=== PATIENT | male | born 1965 ===

== ENCOUNTER 2019-02-14 11:54 | Outpatient (CLI) | payer OTHER | END 2019-02-14 11:55 | disposition home or self-care (01) | LOC: LAB 11:54 | DX: R76.8 Other specified abnormal immunological findings in serum (principal); I10 Essential (primary) hypertension; R80.9 Proteinuria, unspecified ==

== ENCOUNTER 2019-04-22 15:11 | Inpatient (IN) | payer MEDICAID, OTHER ==
[2019-04-22 15:39] VITALS: BMI 26.6
--- NOTE | 2019-04-22 16:17 | ED PDOC ---
Arrival/HPI - General Chief Complaint: Abdominal Pain Time Seen by Provider: 04/22/19 15:17 - History of Present Illness Narrative History of Present Illness (Text): 53 y/o M c PMHx HTN on multiple HTN medications p/w epigastric pain x 2 days. States woke up with pain yesterday morning. Pain is constant, like burning, associated with nausea. Associated with bilateral shoulder pain. Denies fever, chills, vomiting, dyspnea, dysuria, diarrhea, leg swelling. PMD Ifrah Past Medical History - Provider Review Primary Care Provider: Valorie Rg - Infectious Disease Hx of Infectious Diseases: None - Cardiac Hx Cardiac Disorders: Yes Hx Hypertension: Yes - Pulmonary Hx Respiratory Disorders: No - Neurological Hx Neurological Disorder: No - HEENT Hx HEENT Disorder: No - Renal Hx Renal Disorder: No - Endocrine/Metabolic Hx Endocrine Disorders: No - Hematological/Oncological Hx Blood Disorders: No - Integumentary Hx Dermatological Disorder: No - Musculoskeletal/Rheumatological Hx Falls: No - Gastrointestinal Hx Gastrointestinal Disorders: No - Genitourinary/Gynecological Hx Reproductive Disorders: No - Psychiatric Hx Psychophysiologic Disorder: No Hx Substance Use: No - Anesthesia Hx Anesthesia: No Family/Social History Family/Social History: No Known Family HX Smoking Status: Never Smoked Hx Alcohol Use: Yes (socially) Hx Substance Use: No Allergies/Home Meds Allergies/Adverse Reactions: Allergies No Known Allergies Allergy (Verified 04/22/19 18:39) Home Medications: Home Meds Medication Instructions Recorded Confirmed Potassium Chloride [Klor-Con 10] 10 meq PO DAILY 04/22/19 04/22/19 cloNIDine [Catapres] 0.2 mg PO TID 04/22/19 04/22/19 hydrALAZINE [Apresoline] 50 mg PO BID 04/22/19 04/22/19 Review of Systems - Physician Review All systems were reviewed & negative as marked: Yes - Review of Systems Constitutional: absent: Fevers Gastrointestinal: absent: Vomiting Physical Exam - Physical Exam Narrative Physical Exam (Text): Gen nad head nc/at eyes perrl ent mmm neck supple chest no tenderness cv tachycardic lungs cta b/l abd soft epigastric tenderness without guarding back no upper, midline, or cva tenderness skin no rash extremities no edema neuro alert, no focal deficit Vital Signs Temp Pulse Resp BP Pulse Ox 04/22/19 15:52 99.6 F 104 H 18 137/88 98 Medical Decision Making ED Course and Treatment: ekg sinus rhythm 110 bpm, t wave inversions laterally, new since previous differential includes but not limited to acs, gastritis, pancreatitis. Plan: Aspirin, cxr, enzymes. If all negative, CT abdomen/pelvis. 04/22/19 17:42 CXR no acute disease as read by radiologist. CT: IMPRESSION: Trace stranding around the pancreatic head compatible with acute pancreatitis. No hemorrhage, necrosis or pseudocyst. Patient still with pain, requires NPO status and IVF hydration. Dr. Ball accepts patient to hospitalist service. - RAD Interpretation Radiology Orders: 04/22/19 16:12 CHEST PORTABLE [RAD] Stat Disposition/Present on Arrival - Present on Arrival Any Indicators Present on Arrival: No History of DVT/PE: No History of Uncontrolled Diabetes: No Urinary Catheter: No History of Decub. Ulcer: No History Surgical Site Infection Following: None - Disposition Have Diagnosis and Disposition been Completed?: Yes Diagnosis: Acute pancreatitis Disposition: HOSPITALIZED Disposition Time: 17:32 Patient Plan: Admission Condition: GUARDED
[2019-04-22 16:22] LABS: BASO # 0.01 K/mm3 (0.0-2.0); BASO % 0.1 % (0.0-3.0); EOS % 0.1 % (1.5-5.0); HEMOGLOBIN 15.7 g/dL (14.0-18.0); LYMPH % 11.9 % (22.0-35.0); MEAN CELL VOLUME 81.1 fl (80.0-105.0); MEAN CORPUSCULAR HEMOGLOBIN 28.3 pg (25.0-35.0); MEAN CORPUSCULAR HGB CONC 34.9 g/dl (31.0-37.0); MONO # 0.6 (0.1-0.6); MONO % 7.3 % (1.0-6.0); PLATELET COUNT 79 10^3/uL (120.0-450.0); RBC 5.55 10^6/uL (3.5-6.1); RED CELL DISTRIBUTION WIDTH 12.7 % (11.5-14.5); WHITE BLOOD COUNT 8.4 10^3/uL (4.5-11.0)
[2019-04-22 16:31] LABS: INR 1.13; PARTIAL THROMBOPLASTIN TIME 32.3 Seconds (26.9-38.3); PROTHROMBIN TIME 12.5 SECONDS (9.4-12.5)
[2019-04-22 16:33] LABS: ALB/GLOB RATIO 1.2 (1.1-1.8); ALBUMIN 4.4 g/dL (3.0-4.8); ALT/SGPT 23 U/L (7-56); AST/SGOT 27 U/L (17-59); BLOOD UREA NITROGEN 18 mg/dL (7-21); CALCIUM 8.8 mg/dL (8.4-10.5); GFR NON-AFRICAN AMERICAN > 60; LIPASE 360 U/L (23-300)
[2019-04-22 16:43] LABS: TROPONIN I < 0.01 ng/mL
[2019-04-22] MEDS ORDERED: Iohexol 350 MG/100 ML VIAL ONE (17:02)
--- NOTE | 2019-04-22 17:35 | RAD ---
Date of service: 04/22/2019 HISTORY: epigastric pain, bilateral shoulder pain COMPARISON: Chest radiograph dated 11/23/2018. TECHNIQUE: 1 view obtained. FINDINGS: LUNGS: No active pulmonary disease. PLEURA: No significant pleural effusion identified, no pneumothorax apparent. CARDIOVASCULAR: No aortic atherosclerotic calcification present. Normal cardiac size. No pulmonary vascular congestion. OSSEOUS STRUCTURES: No significant abnormalities. VISUALIZED UPPER ABDOMEN: Normal. OTHER FINDINGS: None. IMPRESSION: No active disease.
--- NOTE | 2019-04-22 17:47 | CT ---
Date of service: 04/22/2019 PROCEDURE: CT Abdomen and Pelvis with contrast HISTORY: epigastric pain, nausea, tenderness COMPARISON: None. TECHNIQUE: Contrast dose: 100 mL Omnipaque 350 Radiation dose: Total exam DLP = 487.83 mGy-cm. This CT exam was performed using one or more of the following dose reduction techniques: Automated exposure control, adjustment of the mA and/or kV according to patient size, and/or use of iterative reconstruction technique. FINDINGS: LOWER THORAX: Cardiomegaly. No focal consolidation or pleural effusion. LIVER: 2.7 x 2.1 cm right hepatic lobe cyst. No gross lesion or ductal dilatation. GALLBLADDER AND BILE DUCTS: Unremarkable. PANCREAS: Trace stranding adjacent to the pancreatic head. No gross lesion or ductal dilatation. SPLEEN: Unremarkable. ADRENALS: Unremarkable. No mass. KIDNEYS AND URETERS: Unremarkable. No hydronephrosis. No solid mass. VASCULATURE: Unremarkable. No aortic aneurysm. No aortic atherosclerotic calcification or mural plaque present. BOWEL: Unremarkable. No obstruction. No gross mural thickening. APPENDIX: Normal appendix. PERITONEUM: Unremarkable. No free fluid. No free air. LYMPH NODES: Unremarkable. No enlarged lymph nodes. BLADDER: Unremarkable. REPRODUCTIVE: Prostatomegaly. BONES: No acute fracture. OTHER FINDINGS: None. IMPRESSION: Trace stranding around the pancreatic head compatible with acute pancreatitis. No hemorrhage, necrosis or pseudocyst.
[2019-04-22] MEDS ORDERED: Sodium Chloride 0.9% 1,000 ML IV STA (18:12)
--- NOTE | 2019-04-22 18:34 | CP.PCM.HP ---
<Eyad Jernigan - Last Filed: 04/23/19 07:08> History of Present Illness - History of Present Illness History of Present Illness: Eyad Jernigan DO PGy1 - Internal Medicine Security Control Room Officer - Hospitalist H&P CC: Abd Pain Patient is a 53M w/ a PMH of HTN, HLD, CVA w/ residual L sided deficit presenting to [facility] ED on 04/22 w/ CC of abd pain x2 days. Patient reported that pain began on Monday morning as a mild sharp sensation; He said over the weekend it progressively worsened and subsequently came to the ED. Patient reports associated nausea and loss of appetite w/o any episodes of emesis. Patient denies abdominal trauma, recent illicit drug use, or EtOH use. Denies any recent changes in diet. Patient reported pain is worsened w/ diet. Does not have any complaints of fevers, chills, chest pain, sob, diarrhea, constipation, urinary symptoms. Remainder 12 system ROS is otherwise negative. PMD: Ifrah Nephro: Lilliani PMH: As above PSH: Denies ALL: NKDA Pharmacy: [facility] Home Rx: Aspirin [Ecotrin] 81 mg PO DAILY Chlorthalidone [Hygroton] 25 mg PO DAILY Lisinopril [Zestril] 40 mg PO DAILY amLODIPine [Norvasc] 10 mg PO DAILY Potassium Chloride [Klor-Con 10] 10 meq PO DAILY cloNIDine [Catapres] 0.2 mg PO TID hydrALAZINE [Apresoline] 50 mg PO BID Present on Admission - Present on Admission Any Indicators Present on Admission: No Review of Systems - Review of Systems All systems: reviewed and no additional remarkable complaints except Review of Systems: as per HPI Past Patient History - Infectious Disease Hx of Infectious Diseases: None - Past Medical History & Family History Past Medical History?: No - Past Social History Smoking Status: Never Smoked - CARDIAC Hx Cardiac Disorders: Yes Hx Hypertension: Yes - PULMONARY Hx Respiratory Disorders: No - NEUROLOGICAL Hx Neurological Disorder: No - HEENT Hx HEENT Problems: No - RENAL Hx Chronic Kidney Disease: No - ENDOCRINE/METABOLIC Hx Endocrine Disorders: No - HEMATOLOGICAL/ONCOLOGICAL Hx Blood Disorders: No - INTEGUMENTARY Hx Dermatological Problems: No - MUSCULOSKELETAL/RHEUMATOLOGICAL Hx Falls: No - GASTROINTESTINAL Hx Gastrointestinal Disorders: No - GENITOURINARY/GYNECOLOGICAL Hx Reproductive Disorders: No - PSYCHIATRIC Hx Psychophysiologic Disorder: No Hx Substance Use: No - SURGICAL HISTORY Hx Surgeries: No - ANESTHESIA Hx Anesthesia: No Meds Allergies/Adverse Reactions: Allergies Allergy/AdvReac Type Severity Reaction Status Date / Time No Known Allergies Allergy Verified 04/22/19 18:39 Physical Exam - Constitutional Appears: Well, Non-toxic, No Acute Distress - Head Exam Head Exam: ATRAUMATIC, NORMOCEPHALIC - Eye Exam Eye Exam: EOMI, Normal appearance, PERRL - Respiratory Exam Respiratory Exam: Clear to Auscultation Bilateral, NORMAL BREATHING PATTERN - Cardiovascular Exam Cardiovascular Exam: RRR. absent: Systolic Murmur - GI/Abdominal Exam GI & Abdominal Exam: Soft, Tenderness (mild epigastric tendneress ) Additional comments: Bravo's negative - Neurological Exam Neurological exam: Alert, CN II-XII Intact, Oriented x3 - Psychiatric Exam Psychiatric exam: Normal Affect, Normal Mood - Skin Skin Exam: Dry, Normal Color, Warm Results - Vital Signs Recent Vital Signs: Last Vital Signs Temp 98.7 F 04/22/19 17:34 Pulse 93 H 04/22/19 17:34 Resp 17 04/22/19 17:34 BP 142/88 04/22/19 17:34 Pulse Ox 97 04/22/19 17:34 - Labs Result Diagrams: 04/22/19 16:00 04/22/19 16:00 Labs: Laboratory Results - last 24 hr 04/22/19 04/22/19 04/22/19 16:00 16:00 16:00 WBC 8.4 RBC 5.55 Hgb 15.7 Hct 45.0 MCV 81.1 MCH 28.3 MCHC 34.9 RDW 12.7 Plt Count 79 L Neut % (Auto) 80.6 H Lymph % (Auto) 11.9 L [place] % (Auto) 7.3 H Eos % (Auto) 0.1 L Baso % (Auto) 0.1 Lymph # (Auto) 1.0 L [place] # (Auto) 0.6 Eos # (Auto) 0.0 Baso # (Auto) 0.01 Absolute Neuts (auto) 6.75 H PT 12.5 INR 1.13 APTT 32.3 Sodium 136 Potassium 3.1 L Chloride 98 Carbon Dioxide 24 Anion Gap 18 BUN 18 Creatinine 0.9 Est GFR ( Amer) > 60 Est GFR (Non-Af Amer) > 60 Random Glucose 137 H Calcium 8.8 Total Bilirubin 0.5 AST 27 ALT 23 Alkaline Phosphatase 107 Total Creatine Kinase 64 Troponin I < 0.01 Total Protein 8.1 Albumin 4.4 Globulin 3.8 Albumin/Globulin Ratio 1.2 Lipase 360 H Assessment & Plan - Assessment and Plan (Free Text) Assessment: Patient is a 53M w/ a PMH of HTN, HLD, CVA w/ residual L sided deficit presenting to [facility] ED on 04/22 w/ CC of abd pain x2 days. Plan: Acute Pancreatitis 04/22 CTAP : Trace stranding around the pancreatic head compatible with acute pancreatitis. No hemorrhage, necrosis or pseudocyst. Lipase mildly elevated NPO LR 175cc/hr Toradol 15mg IVP Q6H PRN severe pain Zofran 4mg Q6H PRN Nausea EtOH level negative Lipid Panel pending T-Wave Inversion EKG upon admission w/ lateral TWave inversions V4/5/6; Sinus Tachy 110 QTc 433 Initial Trop Negative Trend Trop x1 HypoKalemia / HypoMag Replete w/ 40 meq K+ Replete w/ 2gm Mag Recheck in AM Chronic HTN C/w Home Chlorthalidone [Hygroton] 25 mg PO DAILY C/w Home Lisinopril [Zestril] 40 mg PO DAILY C/w Home amLODIPine [Norvasc] 10 mg PO DAILY C/w Home Potassium Chloride [Klor-Con 10] 10 meq PO DAILY C/w Home cloNIDine [Catapres] 0.2 mg PO TID C/w Home hydrALAZINE [Apresoline] 50 mg PO BID CVA w/ L sided deficit C/w Home Aspirin [Ecotrin] 81 mg PO DAILY PPX: Lovenox Pepcid Patient was seen, examined, and discussed w/ attending Dr. eRji Jernigan DO PGY1 - Internal Medicine Security Control Room Officer - Hospitalist H&P <Neptali Mendoza - Last Filed: 04/23/19 19:07> Results - Vital Signs Recent Vital Signs: Last Vital Signs Temp 98.7 F 04/23/19 17:54 Pulse 72 04/23/19 17:54 Resp 18 04/23/19 17:54 BP 116/71 04/23/19 17:54 Pulse Ox 97 04/23/19 17:54 - Labs Result Diagrams: 04/23/19 05:30 04/23/19 05:30 Labs: Laboratory Results - last 24 hr 04/22/19 04/22/19 04/22/19 16:00 16:00 21:45 WBC RBC Hgb Hct MCV MCH MCHC RDW Plt Count Neut % (Auto) Lymph % (Auto) [place] % (Auto) Eos % (Auto) Baso % (Auto) Lymph # (Auto) [place] # (Auto) Eos # (Auto) Baso # (Auto) Absolute Neuts (auto) Sodium Potassium Chloride Carbon Dioxide Anion Gap BUN Creatinine Est GFR ( Amer) Est GFR (Non-Af Amer) Random Glucose Calcium Phosphorus 2.9 Magnesium 1.5 L Total Bilirubin AST ALT Alkaline Phosphatase Troponin I 0.02 D Total Protein Albumin Globulin Albumin/Globulin Ratio Triglycerides Cholesterol LDL Cholesterol Direct HDL Cholesterol Alcohol, Quantitative < 10 04/23/19 04/23/19 05:30 05:30 WBC 7.2 RBC 5.26 Hgb 14.6 Hct 42.6 MCV 81.0 MCH 27.8 MCHC 34.3 RDW 12.6 Plt Count 90 L Neut % (Auto) 69.6 H Lymph % (Auto) 16.7 L [place] % (Auto) 12.5 H Eos % (Auto) 0.6 L Baso % (Auto) 0.6 Lymph # (Auto) 1.2 [place] # (Auto) 0.9 H Eos # (Auto) 0.0 Baso # (Auto) 0.04 Absolute Neuts (auto) 5.02 Sodium 136 Potassium 3.2 L Chloride 98 Carbon Dioxide 29 Anion Gap 13 BUN 12 Creatinine 0.9 Est GFR ( Amer) > 60 Est GFR (Non-Af Amer) > 60 Random Glucose 103 Calcium 8.7 Phosphorus Magnesium 1.4 L Total Bilirubin 0.4 AST 23 ALT 30 Alkaline Phosphatase 87 Troponin I Total Protein 7.0 Albumin 3.7 Globulin 3.3 Albumin/Globulin Ratio 1.1 Triglycerides 148 Cholesterol 141 LDL Cholesterol Direct 87 HDL Cholesterol 29 Alcohol, Quantitative Attending/Attestation - Attestation I have personally seen and examined this patient.: Yes I have fully participated in the care of the patient.: Yes I have reviewed all pertinent clinical information: Yes Notes (Text): 04/23/19 19:07 Seen and examined. Discussed with resident. A&P as above.
[2019-04-22] MEDS ORDERED: Pneumococcal 23-Valent Vaccine IM ONE (21:14)
[2019-04-22] MEDS: Lactated Ringer's 1,000 ML IV SCH (21:18)
[2019-04-23] MEDS: Lactated Ringer's 1,000 ML IV SCH ×5 (00:58→23:17)
[2019-04-23 06:08] LABS: BASO # 0.04 K/mm3 (0.0-2.0); BASO % 0.6 % (0.0-3.0); EOS % 0.6 % (1.5-5.0); HEMOGLOBIN 14.6 g/dL (14.0-18.0); LYMPH # 1.2 (1.2-3.4); LYMPH % 16.7 % (22.0-35.0); MEAN CORPUSCULAR HEMOGLOBIN 27.8 pg (25.0-35.0); MEAN CORPUSCULAR HGB CONC 34.3 g/dl (31.0-37.0); MONO # 0.9 (0.1-0.6); MONO % 12.5 % (1.0-6.0); PLATELET COUNT 90 10^3/uL (120.0-450.0); RBC 5.26 10^6/uL (3.5-6.1); RED CELL DISTRIBUTION WIDTH 12.6 % (11.5-14.5); WHITE BLOOD COUNT 7.2 10^3/uL (4.5-11.0)
[2019-04-23 06:30] LABS: LDL CHOLESTEROL 87 mg/dL (0-129)
[2019-04-23 07:14] LABS: ALB/GLOB RATIO 1.1 (1.1-1.8); ALBUMIN 3.7 g/dL (3.0-4.8); ALT/SGPT 30 U/L (7-56); AST/SGOT 23 U/L (17-59); BLOOD UREA NITROGEN 12 mg/dL (7-21); CALCIUM 8.7 mg/dL (8.4-10.5); GFR NON-AFRICAN AMERICAN > 60; HDL CHOLESTEROL 29 mg/dL (29-60)
[2019-04-23] MEDS ORDERED: Potassium Chloride 40 mEq/30 ml LIQ UD PO ONE (07:31)
[2019-04-23] MEDS ORDERED: Magnesium Sulfate 2 gm/50 ml 2 GM/50 ML BAG IVPB ONE (07:31)
[2019-04-23] MEDS ORDERED: Potassium Chloride 10 mEq ER Tab PO SCH (10:00)
--- NOTE | 2019-04-23 11:00 | CARD ---
APPROVED REPORT Date of service: 04/22/2019 EKG Measurement Heart [id number] <Conclusion> Sinus tachycardia T wave abnormality, consider lateral ischemia Abnormal ECG
--- NOTE | 2019-04-23 12:36 | US ---
Date of service: 04/23/2019 HISTORY: pancreatitis, r/o gallstones COMPARISON: Abdomen pelvis CT 04/22/2019 and complete abdomen ultrasound 02/15/2018. TECHNIQUE: Sonographic evaluation of the abdomen. FINDINGS: LIVER: Measures 12.8 cm. The liver is remarkable only for a small simple cyst which is stable at the right lobe superomedially measuring 2.7 x 1.8 x 2.5 cm, mildly larger in size in the interval compared to CT noted above. No intrahepatic biliary dilatation grossly evident. No solid mass grossly evident. GALLBLADDER: Unremarkable. No gallstones. COMMON BILE DUCT: Measures 3.1 mm. No stones. No dilatation. PANCREAS: Extensive overlying bowel gas completely obscures the pancreas. RIGHT KIDNEY: Measures 10.4cm. Normal echogenicity. No calculus, mass, or hydronephrosis. LEFT KIDNEY: Measures 10.1cm. Normal echogenicity. No calculus, mass, or hydronephrosis. SPLEEN: Normal in size and contour, measuring 9.6 cm greatest dimension. No mass. AORTA: No aneurysmal dilatation. IVC: Unremarkable. OTHER FINDINGS: None. IMPRESSION: 1. Pancreas is poorly characterized due to extensive overlying bowel gas. Delete that 2. Mild increase in size in a simple cyst at the right lobe liver compared to CT 04/22/2019. 3. Examination otherwise unremarkable appearing.
--- NOTE | 2019-04-23 15:57 | CP.PCM.PN ---
<Giovanni Landaverde - Last Filed: 04/24/19 14:00> Subjective - Date & Time of Evaluation Date of Evaluation: 04/23/19 Time of Evaluation: 06:00 - Subjective Subjective: Giovanni Landaverde DO PGY1. Hospitalist Progress Note for Dr Ball Patient seen and examined at bedside. He c/o mild epigastric pain with mild nausea. Denies vomiting, diarrhea, fever, chills. No acute events overnight Objective - Vital Signs/Intake and Output Vital Signs (last 24 hours): Temp Pulse Resp BP Pulse Ox 98.7 F 100 H 20 144/80 95 04/23/19 08:11 04/23/19 13:40 04/23/19 08:11 04/23/19 13:40 04/23/19 08:11 Intake and Output: 04/23/19 04/23/19 06:59 18:59 Intake Total 0 Output Total 1600 Balance -1600 - Medications Medications: Current Medications Amlodipine Besylate (Norvasc) 10 mg PO DAILY [facility] Last Admin: 04/23/19 10:51 Dose: 10 mg Aspirin (Ecotrin) 81 mg PO DAILY [facility] Last Admin: 04/23/19 10:52 Dose: 81 mg Chlorthalidone (Hygroton) 25 mg PO DAILY [facility] Last Admin: 04/23/19 10:51 Dose: 25 mg Clonidine HCl (Catapres) 0.2 mg PO TID [facility] Last Admin: 04/23/19 13:40 Dose: 0.2 mg Hydralazine HCl (Apresoline) 50 mg PO BID [facility] Last Admin: 04/23/19 10:51 Dose: 50 mg Lactated Ringer's (Lactated Ringer's) 1,000 mls @ 175 mls/hr IV .Q5H43M [facility] Last Admin: 04/23/19 13:40 Dose: 175 mls/hr Ketorolac Tromethamine (Toradol) 15 mg IVP Q6H PRN PRN Reason: Pain, severe (8-10) Last Admin: 04/22/19 21:25 Dose: 15 mg Lisinopril (Zestril) 40 mg PO DAILY [facility] Last Admin: 04/23/19 10:52 Dose: 40 mg Ondansetron HCl (Zofran Inj) 4 mg IVP Q6H PRN PRN Reason: Nausea/Vomiting - Labs Labs: 04/23/19 05:30 04/23/19 05:30 PT 12.5 SECONDS (9.4-12.5) 04/22/19 16:00 INR 1.13 04/22/19 16:00 APTT 32.3 Seconds (26.9-38.3) 04/22/19 16:00 - Constitutional Appears: Well, Non-toxic, No Acute Distress - Head Exam Head Exam: ATRAUMATIC, NORMAL INSPECTION, NORMOCEPHALIC - Eye Exam Eye Exam: EOMI, Normal appearance, PERRL Pupil Exam: NORMAL ACCOMODATION, PERRL - ENT Exam ENT Exam: Mucous Membranes Moist, Normal Exam - Neck Exam Neck Exam: Full ROM, Normal Inspection. absent: Lymphadenopathy - Respiratory Exam Respiratory Exam: Clear to Ausculation Bilateral, NORMAL BREATHING PATTERN. absent: Rales, Rhonchi, Wheezes - Cardiovascular Exam Cardiovascular Exam: REGULAR RHYTHM, +S1, +S2. absent: JVD, RRR, Murmur - GI/Abdominal Exam GI & Abdominal Exam: Soft, Tenderness (mild epigastic), Normal Bowel Sounds. absent: Distended, Rigid, Mass, Organomegaly, Pulsatile Mass, Rebound - Extremities Exam Extremities Exam: Full ROM, Normal Capillary Refill, Normal Inspection. absent: Joint Swelling, Pedal Edema - Back Exam Back Exam: NORMAL INSPECTION. absent: tenderness - Neurological Exam Neurological Exam: Alert, Awake, CN II-XII Intact, Oriented x3 Neuro motor strength exam: Left Upper Extremity: 4, Right Upper Extremity: 5, Left Lower Extremity: 4, Right Lower Extremity: 5 - Psychiatric Exam Psychiatric exam: Normal Affect, Normal Mood - Skin Skin Exam: Dry, Intact, Normal Color, Warm Assessment and Plan - Assessment and Plan (Free Text) Assessment: 53 y/o male with PMH of HTN, HLD, CVA w/ residual L sided deficit presented abd pain x2 days. Patient admitted for acute pancreatitis Plan: Acute Pancreatitis: -CT A/P: Trace stranding around the pancreatic head compatible with acute pancreatitis, no hemorrhage, necrosis or pseudocyst -LFT wnl. lipase mildly elevated -diet advanced to clear liquid, then to full liquid later -continue zofran, PPI, IVF, toradol prn for pain control -Mg, K low. repleted and continue to monitor HTN: -continue home meds Chlorthalidone, Lisinopril, Norvasc, Catapres, Apresoline PPX: -DVT: SCD -GI: protonix -PT: recommend home d/c Case reviewed and plan discussed with Dr Quinn Landaverde, DO <Claire Ball - Last Filed: 04/24/19 17:23> Objective - Vital Signs/Intake and Output Vital Signs (last 24 hours): Temp Pulse Resp BP Pulse Ox 97.8 F 78 16 76/60 L 96 04/24/19 16:05 04/24/19 16:05 04/24/19 16:05 04/24/19 16:05 04/24/19 16:05 Intake and Output: 04/24/19 04/24/19 06:59 18:59 Intake Total 540 Output Total 1500 Balance -960 - Medications Medications: Current Medications Amlodipine Besylate (Norvasc) 10 mg PO DAILY [facility] Last Admin: 04/24/19 11:03 Dose: 10 mg Aspirin (Ecotrin) 81 mg PO DAILY [facility] Last Admin: 04/24/19 11:03 Dose: 81 mg Chlorthalidone (Hygroton) 25 mg PO DAILY [facility] Last Admin: 04/24/19 11:03 Dose: 25 mg Clonidine HCl (Catapres) 0.2 mg PO TID [facility] Last Admin: 04/24/19 11:03 Dose: 0.2 mg Hydralazine HCl (Apresoline) 50 mg PO BID [facility] Last Admin: 04/24/19 11:02 Dose: 50 mg Lactated Ringer's (Lactated Ringer's) 1,000 mls @ 175 mls/hr IV .Q5H43M [facility] Last Admin: 04/24/19 05:04 Dose: 175 mls/hr Ketorolac Tromethamine (Toradol) 15 mg IVP Q6H PRN PRN Reason: Pain, severe (8-10) Last Admin: 04/22/19 21:25 Dose: 15 mg Lisinopril (Zestril) 40 mg PO DAILY [facility] Last Admin: 04/24/19 11:03 Dose: 40 mg Ondansetron HCl (Zofran Inj) 4 mg IVP Q6H PRN PRN Reason: Nausea/Vomiting - Labs Labs: 04/24/19 06:00 04/24/19 06:00 PT 12.5 SECONDS (9.4-12.5) 04/22/19 16:00 INR 1.13 04/22/19 16:00 APTT 32.3 Seconds (26.9-38.3) 04/22/19 16:00 Attending/Attestation - Attestation I have personally seen and examined this patient.: Yes I have fully participated in the care of the patient.: Yes I have reviewed all pertinent clinical information, including history, physical exam and plan: Yes Notes (Text): 04/24/19 17:19 Attending note; Patient seen and examined with resident. Patient is alert and awake. Abdominal pain is improving. Denies any nausea, vomiting. Denies any urinary, bowel symptoms. Patient is a 53-year-old male with PMH of HTN, HLD, CVA w/ residual L sided deficit presented abd pain x2 days. Patient admitted for acute pancreatitis 1. Abdominal pain; elevated lipase. CT findings consistent with acute pancreatitis. Patient denied alcohol abuse. Abdominal ultrasound ordered. Currently patient is n.p.o.. On IV fluids. Abdominal pain is improving. Started on clear liquid diet. Advance as tolerated. 2. Thrombocytopenia; chronic. Currently no active bleeding. 3. Hypertension; continue Norvasc, chlorthalidone, lisinopril and Catapres. Follow-up with [facility] machine operator as outpatient. Upon discharge the patient will follow-up with [facility] [place] clinic.
[2019-04-24] MEDS: Lactated Ringer's 1,000 ML IV SCH (05:04)
[2019-04-24 06:50] LABS: BASO # 0.04 K/mm3 (0.0-2.0); BASO % 0.5 % (0.0-3.0); EOS # 0.1 (0.0-0.7); EOS % 1.3 % (1.5-5.0); HEMOGLOBIN 13.9 g/dL (14.0-18.0); LYMPH # 1.9 (1.2-3.4); LYMPH % 24.4 % (22.0-35.0); MEAN CELL VOLUME 80.7 fl (80.0-105.0); MEAN CORPUSCULAR HEMOGLOBIN 27.6 pg (25.0-35.0); MEAN CORPUSCULAR HGB CONC 34.2 g/dl (31.0-37.0); MONO # 0.9 (0.1-0.6); MONO % 11.9 % (1.0-6.0); RBC 5.03 10^6/uL (3.5-6.1); RED CELL DISTRIBUTION WIDTH 12.8 % (11.5-14.5); WHITE BLOOD COUNT 7.9 10^3/uL (4.5-11.0)
[2019-04-24 07:06] LABS: ALB/GLOB RATIO 1.2 (1.1-1.8); ALBUMIN 3.5 g/dL (3.0-4.8); ALT/SGPT 34 U/L (7-56); AST/SGOT 26 U/L (17-59); BLOOD UREA NITROGEN 10 mg/dL (7-21); CALCIUM 8.9 mg/dL (8.4-10.5); GFR NON-AFRICAN AMERICAN > 60
[2019-04-24 08:06] VITALS: O2SAT 96
[2019-04-24 08:32] LABS: PLATELET COUNT 88 10^3/uL (120.0-450.0)
[2019-04-24] MEDS ORDERED: Magnesium Sulfate 1 gm in D5W 1 GM/100 ML BAG IVPB ONE (08:35)
[2019-04-24] MEDS ORDERED: Potassium Chloride 40 mEq/30 ml LIQ UD PO ONE (08:35)
--- NOTE | 2019-04-24 13:59 | CP.PCM.DIS ---
Provider - Provider Date of Admission: 04/22/19 18:11 Attending physician: Claire Ball MD Primary care physician: Brian Steele MD Consults: 04/22/19 21:14 Case Management Referral Routine Comment: NEEDS MORE THERAPHY.PT STATES UNABLE TO WALK Physician Instructions: Reason For Exam: EVALUATION-UNABLE TO GRASP L HAND Reason for Referral: [employer] Eval 04/22/19 21:18 Social Work Referral Routine Comment: NEEDS MORE P.T/PT STATES UNABLE TO WALK STILL WEAK Physician Instructions: Reason For Exam: EVALUATION-UNABLE TO GRASP L HAND. Time Spent in preparation of Discharge (in minutes): 45 Hospital Course - Lab Results Lab Results: Most Recent Lab Values WBC 7.9 10^3/uL (4.5-11.0) 04/24/19 06:00 RBC 5.03 10^6/uL (3.5-6.1) 04/24/19 06:00 Hgb 13.9 g/dL (14.0-18.0) L 04/24/19 06:00 Hct 40.6 % (42.0-52.0) L 04/24/19 06:00 MCV 80.7 fl (80.0-105.0) 04/24/19 06:00 MCH 27.6 pg (25.0-35.0) 04/24/19 06:00 MCHC 34.2 g/dl (31.0-37.0) 04/24/19 06:00 RDW 12.8 % (11.5-14.5) 04/24/19 06:00 Plt Count 88 10^3/uL (120.0-450.0) L 04/24/19 06:00 Neut % (Auto) 61.9 % (50.0-68.0) 04/24/19 06:00 Lymph % (Auto) 24.4 % (22.0-35.0) 04/24/19 06:00 [place] % (Auto) 11.9 % (1.0-6.0) H 04/24/19 06:00 Eos % (Auto) 1.3 % (1.5-5.0) L 04/24/19 06:00 Baso % (Auto) 0.5 % (0.0-3.0) 04/24/19 06:00 Lymph # (Auto) 1.9 (1.2-3.4) 04/24/19 06:00 [place] # (Auto) 0.9 (0.1-0.6) H 04/24/19 06:00 Eos # (Auto) 0.1 (0.0-0.7) 04/24/19 06:00 Baso # (Auto) 0.04 K/mm3 (0.0-2.0) 04/24/19 06:00 Absolute Neuts (auto) 4.89 (1.4-6.5) 04/24/19 06:00 PT 12.5 SECONDS (9.4-12.5) 04/22/19 16:00 INR 1.13 04/22/19 16:00 APTT 32.3 Seconds (26.9-38.3) 04/22/19 16:00 Sodium 136 mmol/L (132-148) 04/24/19 06:00 Potassium 3.5 mmol/L (3.6-5.0) L 04/24/19 06:00 Chloride 100 mmol/L (98-107) 04/24/19 06:00 Carbon Dioxide 29 mmol/L (21-33) 04/24/19 06:00 Anion Gap 10 (10-20) 04/24/19 06:00 BUN 10 mg/dL (7-21) 04/24/19 06:00 Creatinine 0.9 mg/dl (0.8-1.5) 04/24/19 06:00 Est GFR ( Amer) > 60 04/24/19 06:00 Est GFR (Non-Af Amer) > 60 04/24/19 06:00 Random Glucose 88 mg/dL (70-110) 04/24/19 06:00 Calcium 8.9 mg/dL (8.4-10.5) 04/24/19 06:00 Phosphorus 2.9 mg/dL (2.5-4.5) 04/22/19 16:00 Magnesium 1.4 mg/dL (1.7-2.2) L 04/23/19 05:30 Total Bilirubin 0.3 mg/dL (0.2-1.3) 04/24/19 06:00 AST 26 U/L (17-59) 04/24/19 06:00 ALT 34 U/L (7-56) 04/24/19 06:00 Alkaline Phosphatase 79 U/L (38-126) 04/24/19 06:00 Total Creatine Kinase 64 U/L (35-230) 04/22/19 16:00 Troponin I 0.02 ng/mL D 04/22/19 21:45 Total Protein 6.5 g/dL (5.8-8.3) 04/24/19 06:00 Albumin 3.5 g/dL (3.0-4.8) 04/24/19 06:00 Globulin 3.0 gm/dL 04/24/19 06:00 Albumin/Globulin Ratio 1.2 (1.1-1.8) 04/24/19 06:00 Triglycerides 148 mg/dL (35-160) 04/23/19 05:30 Cholesterol 141 mg/dL (130-200) 04/23/19 05:30 LDL Cholesterol Direct 87 mg/dL (0-129) 04/23/19 05:30 HDL Cholesterol 29 mg/dL (29-60) 04/23/19 05:30 Lipase 360 U/L (23-300) H 04/22/19 16:00 Alcohol, Quantitative < 10 mg/dL (0-10) 04/22/19 16:00 - Hospital Course Hospital Course: 53M w/ a PMH of HTN, HLD, CVA w/ residual L sided deficit presented to [facility] [place] ED with abdominal pain x2 days. CT A/P showed trace stranding around the pancreatic head compatible with acute pancreatitis, no hemorrhage, necrosis or pseudocyst. Lipase mildly elevated, with negative blood alcohol level. Management of acute pancreatitis with NPO, IVF, pain meds, zofran, PPI started. Lytes monitored and repleted accordingly. Patient has HTN, home meds resumed including Chlorthalidone, Lisinopril, Norvasc, Catapres, Apresoline. Patient received asa, lovonox, PPI for GI/DVT prophylaxis. Patient reported improvement of symptoms, tolerated liquid then solid diet. Today, he was afebrile, abdominal pain/nausea improved, hemodynamically stable and clinically optimized for discharge home today. Additional instructional as below. Discharge Exam - Head Exam Head Exam: ATRAUMATIC, NORMAL INSPECTION, NORMOCEPHALIC - Eye Exam Eye Exam: EOMI, Normal appearance, PERRL Pupil Exam: NORMAL ACCOMODATION, PERRL - ENT Exam ENT Exam: Mucous Membranes Moist - Neck Exam Neck exam: Normal Inspection - Respiratory Exam Respiratory Exam: Clear to PA & Lateral, NORMAL BREATHING PATTERN - Cardiovascular Exam Cardiovascular Exam: REGULAR RHYTHM, +S1, +S2 - GI/Abdominal Exam GI & Abdominal Exam: Normal Bowel Sounds, Soft - Extremities Exam Extremities exam: normal capillary refill, pedal pulses present - Back Exam Back exam: FULL ROM - Neurological Exam Neurological exam: Alert, CN II-XII Intact, Oriented x3 Additional comments: left sided residual weakness - Psychiatric Exam Psychiatric exam: Normal Affect, Normal Mood - Skin Skin Exam: Dry, Intact, Normal Color, Warm Discharge Plan - Follow Up Plan Condition: GUARDED Disposition: HOME/ ROUTINE Instructions: Pancreatitis (DC) Additional Instructions: Please resume your home medications Follow up with your primary care doctor in 3-5 days It's extremely important that you stop drinking alcohol or else the symptoms will return and worsens. Please return if the symptoms recur, or call 911. Referrals: Brian Steele MD [Primary Care Provider] - Valorie Rg MD [Medical Doctor] -
[2019-04-24 16:06] VITALS: BP 76/60; PULSE 78; RESP 16; TEMP 97.8
== END 2019-04-24 15:00 | disposition home or self-care (01) | DRG 282 ==
LOC: ED 15:11 → ERH 18:11 → 3RNO 19:19
PROVIDERS: ADMIT Internal Medicine; ATTEND Internal Medicine
DX: K85.90 Acute pancreatitis without necrosis or infection, unspecified (principal); D69.6 Thrombocytopenia, unspecified; E78.5 Hyperlipidemia, unspecified; I10 Essential (primary) hypertension; Z79.82 Long term (current) use of aspirin; Z86.73 Personal history of transient ischemic attack (TIA), and cerebral infarction without residual deficits